=== PATIENT | female | born 1950 | race American Indian/Alaskan Native ===

== ENCOUNTER 2025-02-28 09:44 | Emergency (ER) | payer MEDICARE, SELFPAY ==
[2025-02-28 09:58] VITALS: BP 179/71
--- NOTE | 2025-02-28 10:52 | ED.GENMED ---
History of Present Illness
General
Chief Complaint: Skin Problem
Source: patient
Exam Limitations: none
Time Seen by Provider: 02/28/25 10:34
History of Present Illness
History of Present Illness:
See MDM
Past History
Past History
ED Past Medical History: None
ED Past Surgical History: None
Social History
Tobacco: Non-smoker
Alcohol: None
Phy Exam
Physical Exam
Physical Exam:
See MDM
Course
Vital Signs
Initial and Last Documented VS:
Initial Vital Signs
Temp Pulse Resp BP Pulse Ox
98.5 F 83 16 179/71 100
02/28/25 09:58 02/28/25 09:58 02/28/25 09:58 02/28/25 09:58 02/28/25 09:58
Last Documented Vital Signs
Temp Pulse Resp BP Pulse Ox
98.5 F 83 16 179/71 100
02/28/25 09:58 02/28/25 09:58 02/28/25 09:58 02/28/25 09:58 02/28/25 10:58
MDM/Problems Addressed
Differential Diagnosis Includes:
Note:
CHIEF COMPLAINT(S)
Neck lumps.
HISTORY OF PRESENT ILLNESS
The patient is a 74-year-old female with a history of right breast cancer treated in March 2013 and a hysterectomy performed in 2013. The current visit is due to concerns about enlarging neck masses, initially noted by [facility], where
imaging studies suggested carcinoma. Recent CT scans revealed several enlarged nodes that were concerning for lymphoma or metastatic disease. The primary cancer source remains unidentified. Biopsy was performed on the right left shoulder on ,
investigating additional small lumps, including nodes along the right neck, supraclavicular region, and back. The patient reports no pain associated with these lumps. Upcoming consultation with oncologist, Dr. Hawk, is scheduled for Wednesday. No prior
chemotherapy has been initiated. There is concern about progression of disease and associated nodes. The patient exhibits anxiety regarding her medical condition.
ADDITIONAL HISTORY OBTAINED FROM SOURCES OTHER THAN THE PATIENT
The patients spouse has expressed concern about the time delay from imaging to biopsy and the patient�s ongoing worry about her health. The spouse noted additional small lumps appearing in the right palm that may be unrelated.
CHRONIC MEDICAL CONDITIONS SIGNIFICANTLY AFFECTING CARE
Chronic conditions affecting care include a history of breast cancer and post-hysterectomy status.
SOCIAL DETERMINANTS OF HEALTH
The patient is experiencing significant stress and anxiety related to her uncertain health status and the potential diagnosis of cancer. This has been compounded by delayed medical processes leading up to the biopsy and ongoing testing.
PHYSICAL EXAM
- Examination of the neck revealed enlarged right supraclavicular lymph nodes and palpable nodes on the right side of the neck, consistent with prior imaging findings.
- Additional lumps were noted in the right shoulder area and right palm, the latter suspected to be unrelated.
- Nursing notes reviewed and vital signs reviewed.
DIFFERENTIAL DIAGNOSIS
The Differential Diagnosis includes, in no particular order and is not limited to:
- Lymphoma
- Metastatic breast cancer
- Other metastatic carcinoma
- Benign lymphadenopathy
- Infectious lymphadenitis
- Lipoma
- Cyst
- Sarcoidosis
- Castleman disease
- Leukemia
SUMMARY OF ENCOUNTER
The patient presented to the emergency department with concerns of enlarged neck masses, with a prior history of breast cancer. CT imaging indicates possible carcinoma, suspected lymphoma, or metastatic disease. Biopsy results from the right
shoulder area are pending. The patient is anxious about ongoing progression and the lack of a definitive diagnosis. Dr. Hawk, an oncologist, is scheduled to see the patient on Wednesday to discuss potential treatments and further diagnostic tests.
ASSESSMENT
The patient is likely experiencing lymphadenopathy secondary to either lymphoma or metastatic carcinoma. Awaiting biopsy results for further clarification.
MEDICATION RECONCILIATION
No new medications were administered or prescribed during this visit.
MEDICAL DECISION MAKING
-Complexity of Data Reviewed: Chronic conditions affecting care include a history of breast cancer and post-hysterectomy status. The Differential Diagnosis includes lymphoma, metastatic breast cancer, other metastatic carcinomas, benign
lymphadenopathy, infectious lymphadenitis, lipoma, cyst, sarcoidosis, Castleman disease, and leukemia.
-Data:
Category 1:
No tests or new labs were ordered today. External records from [facility], including imaging and biopsy details, have been reviewed.
Category 3:
Discussion of management was planned with Dr. Hawk, the oncologist, regarding further steps after the biopsy results are available.
-Risk:
The documentation of cancer or lymphoma management involves prescription drug management as a component of therapy, pending further diagnostics and oncologist evaluation, to discuss the potential for chemotherapy as treatment.
DIAGNOSIS
- Lymphadenopathy potentially due to lymphoma, ICD-10: R59.9
- Metastatic carcinoma (to be specified post-biopsy), ICD-10: C79.9
- History of breast cancer, ICD-10: Z85.3
SUMMARY OF ENCOUNTER
The patient, a 74-year-old female with a history of breast cancer, presented to the emergency department with concerns about worsening lumps on her neck. Imaging and a biopsy have already been conducted in the outpatient setting, although biopsy
results are pending. The primary concern is possible lymphoma or metastatic disease in the lymph nodes. The patient expressed distress due to the appearance of new nodes on her right neck, which are suspected to be related to worsening metastatic
disease. The CT findings were reviewed with the patient and her spouse, and the concern for cancer was acknowledged. The patient was reassured that the current workup includes outpatient testing and follow-up, which have already been scheduled.
ASSESSMENT
The patient is suspected to have lymphadenopathy potentially due to lymphoma or metastatic carcinoma based on CT imaging and clinical presentation.
PLAN
Continue with the planned outpatient workup and follow-up appointments. Await biopsy results to clarify the diagnosis and determine further management.
INDEPENDENT REVIEW OF LABS AND INTERPRETATION OF TESTS
My independent review of the CT scan indicates possible metastatic disease with involvement of the cervical lymph nodes.
MEDICAL DECISION MAKING
-Complexity of Data Reviewed: Chronic conditions affecting care include a history of breast cancer. The differential diagnosis includes lymphoma, metastatic breast cancer, other metastatic carcinomas, benign lymphadenopathy, infectious
lymphadenitis, lipoma, cyst, sarcoidosis, Castleman disease, and leukemia.
-Data:
Category 1
Non-emergency department records reviewed: Imaging details from outpatient care were reviewed.
Category 2
Clinical information was obtained from an independent historian: The patients spouse provided additional context regarding the patients concerns.
Category 3
N/A
-Risk: Consideration of Admission/Observation: Escalation of care including admission/observation was considered given the complexity and risk of the patients presenting complaint and underlying comorbidities. However, the patient is deemed safe for
outpatient management with close follow-up. Reasoning: Work-up reassuring, does not reveal any acute life/organ threatening processes, patients symptoms well controlled upon reevaluation, reexamination is reassuring, vitals are stable, patient
agreeable with discharge, reliable for follow-up.
DIAGNOSIS
- Lymphadenopathy potentially due to lymphoma, ICD-10: R59.9
- Metastatic carcinoma (to be specified post-biopsy), ICD-10: C79.9
- History of breast cancer, ICD-10: Z85.3
*Pulse Oximetry
SaO2: 100
Oxygen Mode of Delivery: Room air
Patient hypoxic: no
*Critical Care Note
Total Time (30-74mins, 75-104mins- exclusive of procedures): Not Applicable
ED Attending Note
-
Portions of this chart may have been created with voice recognition software.� Occasional wrong word or��sound alike� substitutions may have occurred due to the inherent limitations of voice recognition software.
Discharge Plan
Departure
Patient Disposition: Home (Routine Discharge)
Date of Disposition: 02/28/25
Time of Disposition: 11:57
Patient with high blood pressure during this ER visit?: No
Discharge Problem:
Enlarged lymph node in neck
Referrals:
Greyson Miranda MD [Active, Hematology / Oncology]
Activity Restrictions/Additional Instructions:
As we discussed, it is very important that you keep your appointment on [place]. Based on the worsening neck bumps and the CT findings, there is concern that this is some sort of cancer.
Interventions
Interventions:
*Neglect/Abuse Screening Last Done: 02/28/25 09:58
*Risk Screen - Suicide (C-SSRS) Last Done: 02/28/25 09:58
Discharge Date and Time
Print Language: KITTITIAN
== END 2025-02-28 12:07 | disposition home or self-care (01) ==
LOC: EMR 09:44
PROVIDERS: EMERGENCY PHYSICIAN Student in an Organized Health Care Education/Training Program; FAMILY PHYSICIAN Family Medicine
DX: R59.0 Localized enlarged lymph nodes (principal); Z85.3 Personal history of malignant neoplasm of breast; Z90.710 Acquired absence of both cervix and uterus
CPT/HCPCS: 99282